=== PATIENT | female | born 1990 | race Caucasian/White ===

== ENCOUNTER 2017-08-04 17:25 | Emergency (ER) | payer SELFPAY ==
[2017-08-04 17:27] VITALS: BP 130/76; PULSE 65; RESP 14; TEMP 98.2; O2SAT 100
[2017-08-04] MEDS ORDERED: ACETAMINOPHEN 500 MG CPLT PO ONE (23:45)
[2017-08-04] MEDS ORDERED: CYCLOBENZAPRINE HCL 10 MG TAB PO ONE (23:45)
--- NOTE | 2017-08-04 23:47 | PD ---
HPI Chief Complaint: Fall Time Seen by Provider: 23:26 Travel History International Travel<30 days: Yes Contact w/Intl Traveler<30days: Yes Name of Country Traveled to: [facility] Traveled to known affect area: Yes History of Present Illness HPI 26-year-old female presents to emergency Department with complaints of back pain after a slip and fall at a store this afternoon. She states that she slipped and fell backwards injuring her back. She states the pain is worse in her mid back. She does have complaints of pain all the way from her neck down to her tailbone. She denies striking her head. No syncope. No nausea vomiting. No abdominal pain or urinary symptoms. No focal numbness or tingling. Pain is mild to moderate. Worse with bending and movement. PFSH Past Medical History Medical History: Denies Significant Hx Tetanus Vaccination: Unknown ?: Not LMP: 07/11/17 Past Surgical History Surgical History: No Previous Surgery Social History Alcohol Use: No Tobacco Use: No Substance Use: No Allergies-Medications (Allergen,Severity, Reaction): Coded Allergies: aspirin (Verified Allergy, Unknown, 08/04/17) Reported Meds & Prescriptions Reported Meds & Active Scripts Active Robaxin (Methocarbamol) 500 Mg Tab 1,000 Mg PO QID 7 Days Review of Systems General / Constitutional: No: Fever Eyes: No: Visual changes HENT: Positive: Neck Pain, No: Headaches Cardiovascular: No: Chest Pain or Discomfort Respiratory: No: Shortness of Breath Gastrointestinal: No: Abdominal Pain Genitourinary: No: Dysuria Musculoskeletal: Positive: Limited ROM, Pain Skin: No Rash Neurologic: No: Weakness Psychiatric: No: Depression Endocrine: No: Polydipsia Hematologic/Lymphatic: No: Easy Bruising Physical Exam Narrative GENERAL: This is a well-nourished, well-developed patient, in no apparent distress. SKIN: No rashes, ecchymoses or lesions. Warm and dry. HEAD: Atraumatic. Normocephalic. EYES: PERRL, EOMI, no discharge or injection. No scleral icterus. EARS: Clear NOSE: Nasal turbinates appear normal. THROAT: Mucosa pink and moist. Airway patent. NECK: Trachea midline. supple, moves head freely. No central bony tenderness. Patient complains paracervical tenderness. Patient has full rotation but has slightly limited flexion. LUNGS: Clear to auscultation. CV: Regular in rhythm. ABDOMEN: Soft nontender. Back: Patient has complaints of mid thoracic tenderness. There is no single area point tenderness. She states the pain appears to be worse in the mid thoracic spine. Patient also has parathoracic and paralumbar tenderness. Negative straight leg raise bilaterally. Deep tendon reflexes are 3+ bilaterally. She has intact sensation with good distal pulses. EXT: No clubbing cyanosis or edema. Data Data Last Documented VS Vital Signs Date Time Temp Pulse Resp B/P (MAP) Pulse Ox O2 Delivery O2 Flow Rate FiO2 08/04/17 17:27 98.2 65 14 130/76 (94) 100 Orders Orders Spine, Thoracic-Ap/Lat/Sw(3vw) (08/04/17 23:38) Acetaminophen (Tylenol) (08/04/17 23:45) Cyclobenzaprine (Flexeril) (08/04/17 23:45) Ed Discharge Order (08/05/17 00:29) MDM Medical Decision Making Medical Screen Exam Complete: Yes Emergency Medical Condition: Yes Medical Record Reviewed: Yes Interpretation(s) T-spine: Negative for acute fracture. Differential Diagnosis MDM: High Differential diagnoses: Fracture, sprain, strain, dislocation, contusion, neurovascular injury Narrative Course Patient is given Tylenol 1 g by mouth and Flexeril 10 mg by mouth. X-ray of the T-spine. X-ray of the thoracic spine is negative for bony injury. Patient's symptoms are consistent with myofascial injury. This is neck and back pain status post fall Diagnosis Primary Impression: neck and back pain status post fall Patient Instructions: General Instructions Additional Instructions: Rest. Ice for the next 3 days followed by heat . 2 Tylenol every 6 hours. Robaxin. Follow-up with a primary care doctor in one week. Return to the ER for emergencies. Med/Other Pt SpecificInfo: Prescription(s) given Scripts Methocarbamol (Robaxin) 500 Mg Tab 1000 MG PO QID for Muscle Spasm for 7 Days, TAB 0 Refills Prov: Matthias Baer MD 08/05/17 Disposition: 01 DISCHARGE HOME Condition: Stable Sergio Cardenas Aug 04, 2017 23:47
[2017-08-05] VITALS: BP 128/71; PULSE 77; RESP 18; O2SAT 99
--- NOTE | 2017-08-05 00:25 | RADRPT ---
EXAM DATE/TIME: 08/05/2017 00:07 [facility] COMPARISON: No previous studies available for comparison. INDICATIONS : Back pain from fall. MEDICAL HISTORY : None. SURGICAL HISTORY : None. ENCOUNTER: Initial ACUITY: 1 day PAIN SCORE: 5/10 LOCATION: Bilateral back FINDINGS: There is normal alignment of the thoracic vertebral bodies. Vertebral body height is maintained. No evidence of fracture or subluxation. Pedicles are intact at all levels. The paravertebral reflecti ons are not thickened. CONCLUSION: 1. There is no evidence of acute fracture. Ramos Iglesias MD on August 05, 2017 at 0:23 Board Certified Radiologist. This report was verified electronically.
[2017-08-05] MEDS ORDERED: ROBA500T PO (00:30)
== END 2017-08-05 00:40 | disposition home or self-care (01) ==
LOC: NEPD 17:25
DX: M54.2 Cervicalgia (principal); M54.9 Dorsalgia, unspecified; Z79.899 Other long term (current) drug therapy
CPT/HCPCS: 72072; 99283

== ENCOUNTER 2018-01-13 07:28 | Emergency (ER) | payer SELFPAY ==
[~2018-01-13] VITALS: Ht 157.5 cm; Wt 55.0 kg
[~2018-01-13 07:28] MED LIST: ROBA500T PO
[2018-01-13 07:30] VITALS: BP 144/70; PULSE 72; RESP 16; TEMP 97.9; O2SAT 100
[2018-01-13 07:49] VITALS: BP 141/87; PULSE 60; RESP 16; O2SAT 99
[2018-01-13] MEDS ORDERED: SODIUM CHLORIDE 0.9% FLUSH 10 ML FLUSH IVF PRN (08:00)
--- NOTE | 2018-01-13 08:03 | PD ---
HPI Chief Complaint: Chest Pain Time Seen by Provider: 07:47 Travel History International Travel<30 days: No Contact w/Intl Traveler<30days: No Traveled to known affect area: No History of Present Illness HPI 27 y/o female presents with chest pain that started yesterday. She states sometimes it also hurts when she takes a deep breath. She denies any other concurrent complaints. Quality of pain is sharp. Severity is moderate. She denies recurrent history of this. History is confirmed in [place] with nurse who is fluent and patient is comfortable with this. Patient denies control use. She denies cardiac history or family history [facility] Past Medical History Medical History: Denies Significant Hx Diminished Hearing: No Tetanus Vaccination: > 5 Years ?: Not LMP: 01/09/18 : 2 Para: 1 Miscarriage: 1 Past Surgical History Surgical History: No Previous Surgery Family History Family Myocardial Infarction: No Social History Alcohol Use: No Tobacco Use: Yes (5 cigarrettes per day) Substance Use: No Allergies-Medications (Allergen,Severity, Reaction): Coded Allergies: aspirin (Verified Adverse Reaction, Severe, rash, 01/13/18) Reported Meds & Prescriptions Reported Meds & Active Scripts Active No Active Prescriptions or Reported Medications Review of Systems Except as stated in HPI: all other systems reviewed are Neg Physical Exam Narrative GENERAL: 27 y/o female in no apparent distress SKIN: Focused skin assessment warm/dry. HEAD: Atraumatic. Normocephalic. EYES: Pupils equal and round. No scleral icterus. No injection or drainage. ENT: No nasal bleeding or discharge. Mucous membranes pink and moist. NECK: Trachea midline. No JVD. CARDIOVASCULAR: Regular rate and rhythm. RESPIRATORY: No accessory muscle use. Clear to auscultation. Breath sounds equal bilaterally. GASTROINTESTINAL: Abdomen soft, non-tender, nondistended. Hepatic and splenic margins not palpable. MUSCULOSKELETAL: No obvious deformities. No clubbing. No cyanosis. No edema. NEUROLOGICAL: Awake and alert. No obvious cranial nerve deficits. Motor grossly within normal limits. Normal speech. PSYCHIATRIC: Appropriate mood and affect; insight and judgment normal. Data Data Last Documented VS Vital Signs Date Time Temp Pulse Resp B/P (MAP) Pulse Ox O2 Delivery O2 Flow Rate FiO2 01/13/18 07:49 60 16 99 Room Air 01/13/18 07:49 141/87 (105) 01/13/18 07:30 97.9 Orders Orders Electrocardiogram (01/13/18 07:47) Ckmb (Isoenzyme) Profile (01/13/18 07:47) Complete Blood Count With Diff (01/13/18 07:47) Comprehensive Metabolic Panel (01/13/18 07:47) D-Dimer (01/13/18 07:47) Magnesium (Mg) (01/13/18 07:47) Prothrombin Time / Inr (Pt) (01/13/18 07:47) Act Partial Throm Time (Ptt) (01/13/18 07:47) Troponin I (01/13/18 07:47) Lipase (01/13/18 07:47) Ecg Monitoring (01/13/18 07:47) Iv Access Insert/Monitor (01/13/18 07:47) Oximetry (01/13/18 07:47) Sodium Chloride 0.9% Flush (Ns Flush) (01/13/18 08:00) Chest, Pa & Lat (01/13/18 07:47) CKMB (01/13/18 07:56) CKMB% (01/13/18 07:56) Ed Discharge Order (01/13/18 08:46) Labs Laboratory Tests Test 01/13/18 07:56 White Blood Count 6.0 TH/MM3 Red Blood Count 4.47 MIL/MM3 Hemoglobin 13.7 GM/DL Hematocrit 40.2 % Mean Corpuscular Volume 90.0 FL Mean Corpuscular Hemoglobin 30.6 PG Mean Corpuscular Hemoglobin Concent 34.0 % Red Cell Distribution Width 12.2 % Platelet Count 271 TH/MM3 Mean Platelet Volume 9.2 FL Neutrophils (%) (Auto) 50.8 % Lymphocytes (%) (Auto) 33.4 % Monocytes (%) (Auto) 8.2 % Eosinophils (%) (Auto) 6.6 % Basophils (%) (Auto) 1.0 % Neutrophils # (Auto) 3.1 TH/MM3 Lymphocytes # (Auto) 2.0 TH/MM3 Monocytes # (Auto) 0.5 TH/MM3 Eosinophils # (Auto) 0.4 TH/MM3 Basophils # (Auto) 0.1 TH/MM3 CBC Comment DIFF FINAL Differential Comment Prothrombin Time 10.4 SEC Prothromb Time International Ratio 1.0 RATIO Activated Partial Thromboplast Time 25.4 SEC D-Dimer Quantitative (PE/DVT) 0.39 MG/L FEU Blood Urea Nitrogen 8 MG/DL Creatinine 0.58 MG/DL Random Glucose 85 MG/DL Total Protein 8.2 GM/DL Albumin 4.2 GM/DL Calcium Level 9.0 MG/DL Magnesium Level 2.0 MG/DL Alkaline Phosphatase 68 U/L Aspartate Amino Transf (AST/SGOT) 13 U/L Alanine Aminotransferase (ALT/SGPT) 17 U/L Total Bilirubin 0.4 MG/DL Sodium Level 141 MEQ/L Potassium Level 3.8 MEQ/L Chloride Level 106 MEQ/L Carbon Dioxide Level 26.0 MEQ/L Anion Gap 9 MEQ/L Estimat Glomerular Filtration Rate 125 ML/MIN Total Creatine Kinase 103 U/L Creatine Kinase MB 0.9 NG/ML Troponin I LESS THAN 0.02 NG/ML Lipase 113 U/L MDM Medical Decision Making Medical Screen Exam Complete: Yes Emergency Medical Condition: Yes Medical Record Reviewed: Yes (pmh confirmed) Interpretation(s) CBC & BMP Diagram 01/13/18 07:56 Total Protein 8.2, Albumin 4.2, Calcium Level 9.0, Magnesium Level 2.0, Alkaline Phosphatase 68, Aspartate Amino Transf (AST/SGOT) 13 L, Alanine Aminotransferase (ALT/SGPT) 17, Total Bilirubin 0.4 Last 24 hours Impressions Chest X-Ray 01/13/18 0747 Signed Impressions: CONCLUSION: Negative examination. Differential Diagnosis Musculoskeletal, gastritis, PE Narrative Course will check labs, xr, ekg and reevaluate ed workup no acute, Patient denies any new complaints and states that they are feeling better. Patient happy with care, all questions answered. Patient knows that follow up is incumbent on them and to return to the emergency room immediately if new or worsening symptoms develop. Patient given strict return precautions, vitals reviewed and are normal, agrees to further workup as an outpatient. Diagnosis Primary Impression: Chest wall pain Patient Instructions: General Instructions Additional Instructions: return as needed, tylenol as needed, follow with primary this week Med/Other Pt SpecificInfo: No Change to Meds Scripts No Active Prescriptions or Reported Meds Disposition: 01 DISCHARGE HOME Condition: Stable Brandi Sarabia MD Jan 13, 2018 08:03
[2018-01-13 08:10] LABS: AUTOMATED NEUTROPHIL # 3.1 TH/MM3 (1.8-7.7); BASOPHIL # 0.1 TH/MM3 (0-0.2); EOSINOPHIL # 0.4 TH/MM3 (0-0.4); EOSINOPHIL % 6.6 % (0.0-4.0); HEMATOCRIT 40.2 % (35.0-46.0); HEMOGLOBIN 13.7 GM/DL (11.6-15.3); LYMPH % 33.4 % (9.0-44.0); MEAN CORPUSCULAR HEMOGLOBIN 30.6 PG (27.0-34.0); MEAN PLATELET VOLUME 9.2 FL (7.0-11.0); MONO % 8.2 % (0.0-8.0); MONOCYTE # 0.5 TH/MM3 (0-0.9); NEUT % 50.8 % (16.0-70.0); PLATELET COUNT 271 TH/MM3 (150-450); RED BLOOD COUNT 4.47 MIL/MM3 (4.00-5.30); RED CELL DISTRIBUTION WIDTH 12.2 % (11.6-17.2)
[2018-01-13 08:13] LABS: PROTHROMBIN TIME - PATIENT 10.4 SEC (9.8-11.6)
[2018-01-13 08:15] LABS: D-DIMER 0.39 MG/L FEU (0.00-0.50)
[2018-01-13 08:22] LABS: ALBUMIN 4.2 GM/DL (3.4-5.0); ALT (GPT) 17 U/L (10-53); AST (GOT) 13 U/L (15-37); BLOOD UREA NITROGEN 8 MG/DL (7-18); CHLORIDE 106 MEQ/L (98-107); CREATININE 0.58 MG/DL (0.50-1.00); GLOMERULAR FILTRATION RATE 125 ML/MIN (>89); GLUCOSE,RANDOM 85 MG/DL (74-106); SODIUM (NA) 141 MEQ/L (136-145)
[2018-01-13 08:26] LABS: ALKALINE PHOSPHATASE 68 U/L (45-117); TOTAL BILIRUBIN ADULT 0.4 MG/DL (0.2-1.0); TOTAL PROTEIN 8.2 GM/DL (6.4-8.2); TROPONIN I LESS THAN 0.02 NG/ML (0.02-0.05)
--- NOTE | 2018-01-13 08:28 | RADRPT ---
EXAM DATE: 01/13/2018 8:08 AM EDT AGE/SEX: 27 years / Female INDICATIONS: Chest pain. CLINICAL DATA: This is the patient's initial encounter. Patient reports that signs and symptoms have been present for 3 days and indicates a pain score of 4/10. MEDICAL/SURGICAL HISTORY: None. None. COMPARISON: No prior exams available for comparison. FINDINGS: PA and lateral views of the chest demonstrate the lungs to be symmetrically aerated without evidence of mass, infiltrate or effusion. The cardiomediastinal contours are unremarkable. Osseous structures are intact. CONCLUSION: Negative examination. Electronically signed by: Bhavesh Lovett MD 01/13/2018 8:27 AM EDT
[2018-01-13 09:01] VITALS: BP 124/77; TEMP 97.8
--- NOTE | 2018-01-13 16:53 | EKG ---
Date Performed: 01/13/2018 Time Performed: 08:20:15 PTAGE: 27 years EKG: SINUS BRADYCARDIA BORDERLINE ECG NO PREVIOUS TRACING DOCTOR: Erinn Bernal Interpretating Date/Time 01/13/2018 16:49:03
== END 2018-01-13 09:01 | disposition home or self-care (01) ==
LOC: NEPE 07:28
DX: R07.89 Other chest pain (principal); R00.1 Bradycardia, unspecified; F17.210 Nicotine dependence, cigarettes, uncomplicated; Z88.6 Allergy status to analgesic agent
CPT/HCPCS: 71046; 80053; 82550; 82552; 83690; 83735; 84484; 85025; 85379; 85610; 85730; 93005; 99285